=== PATIENT | female | born 1950 | race Caucasian/White ===

== ENCOUNTER 2016-07-29 08:15 | Day surgery (SDC) | payer BC, OTHER ==
[~2016-07-29 08:15] MED LIST: CEFAZOLIN 1 GM/D5W RTU 1 GM/50 ML RTUPB IV PRN; RINGERS SOLUTION,LACTATED 1,000 ML IV PRN
[2016-07-29] MEDS ORDERED: FENTANYL CITRATE INJ/PF 100 MCG/2 ML AMPUL ONE (10:00)
[2016-07-29] MEDS ORDERED: MIDAZOLAM 2 MG/2 ML INJ ONE (10:00)
[2016-07-29] MEDS ORDERED: ONDANSETRON HCL INJ/PF 4 MG/2 ML SDV ONE (10:00)
[2016-07-29] MEDS ORDERED: PROPOFOL INJ 200 MG/20 ML VIAL IV ONE (10:01)
[2016-07-29] MEDS ORDERED: DEXAMETHASONE SOD PHOS INJ 10 MG/1 ML VIAL ONE (10:01)
[2016-07-29] MEDS ORDERED: KETOROLAC TROMETHAMINE 60 MG/2 ML SDV ONE (10:01)
[2016-07-29] MEDS ORDERED: BUPIVACAINE HCL 0.5 % INJ/PF 30 ML SDV ONE (10:02)
[2016-07-29] MEDS ORDERED: LIDOCAINE 2% INJ (20 MG/ML) 20 ML MDV ONE (10:02)
--- NOTE | 2016-07-29 11:33 | [facility]ARE OPERATIVE REPORT E ---
[facility] NAME: ALLISON LANGFORD AGE: 66Y DATE OF SURGERY: 07/29/2016 ROOM: PREOPERATIVE DIAGNOSIS: FOREIGN BODY, PLANTAR ASPECT LEFT HALLUX. POSTOPERATIVE DIAGNOSIS: FOREIGN BODY, PLANTAR ASPECT LEFT HALLUX. OPERATION: Removal of foreign body, plantar aspect left hallux. SURGEON: TAMMY DOWD D.P.M. INTRAOPERATIVE FINDINGS: Intraoperative findings indicated a well encapsulated piece of foreign material which was with a consistency of glass or piece of thin porcelain. Intraoperative findings were confirmed clinically. PROCEDURE: With the patient lying in the dorsal recumbent position, the left foot and leg were prepped and draped in the usual standard sterile orthopedic manner after the local anesthesia was administered which was a regional infiltration with local anesthesia. The type of anesthesia utilized was a 50/50 mixture of 2% Xylocaine and 0.5% Marcaine. After the anesthetic effect was accomplished, attention was directed to the plantar aspect of the left hallux. A curvilinear incision was placed right over the apical portion of the palpable painful area. The initial incision was deepened. The superficial and deep subcutaneous tissues were dissected via blunt and sharp dissection. All bleeders were ligated. All vital structures were identified and protected from surgical trauma. At this point, the very localized exploration began and it was carried until a small piece of foreign material was encountered. The dimensions were about 0.5 cm in length and about 0.2 cm in width. Further exploration was carried out in order to make sure there were no additional pieces of foreign material and none were encountered. At this point, the surgical area was irrigated with copious amounts of sterile saline solution and subcutaneous tissues were closed with 3-0 Vicryl. The skin edges were repositioned and closed with 4-0 nylon using continuous interlocked stitch. A Betadine compression dressing was applied around the left hallux. This patient tolerated the procedures well and left the operating room with stable vital signs and in good condition. The patient was taken to the recovery room alert, conscious and oriented. There are no permanent disabilities anticipated at this time. ADDENDUM TO THIS DISCUSSION: Prior to placing the incision, the left leg was elevated for approximately 2 minutes' of time and the left ankle pneumatic tourniquet was inflated up to 250 mmHg after the blood was exsanguinated from the left foot. The left ankle pneumatic tourniquet was deflated after the removal of the foreign body was completed. DICTATING PHYSICIAN: TAMMY DOWD D.P.M. [id number] PHY#: [id number] ID: [id number] JOB#: [id number] ACCT: [id number] cc:TAMMY DOWD D.P.M. >
== END 2016-07-29 12:00 | disposition home or self-care (01) ==
LOC: SC 08:15
PROVIDERS: ATTEND Podiatrist Foot & Ankle Surgery
PROC: 0JCR0ZZ Extirpation of Matter from Left Foot Subcutaneous Tissue and Fascia, Open Approach (ICD-10-PCS; principal; 2016-07-29 09:15)
DX: S90.452A Superficial foreign body, left great toe, initial encounter (principal); X58.XXXA Exposure to other specified factors, initial encounter; K21.9 Gastro-esophageal reflux disease without esophagitis; Z79.899 Other long term (current) drug therapy
CPT/HCPCS: 88304 ×2; 28190; J2250; J3490; J0690; J1885; J3010; J2405; J2704; J1100; 400

== ENCOUNTER → 2016-08-23 | Outpatient (CLI) | payer BC, OTHER | LOC: OD 15:30 | DX: Z12.72 Encounter for screening for malignant neoplasm of vagina (principal); Z90.710 Acquired absence of both cervix and uterus | CPT/HCPCS: 88142 ==

== ENCOUNTER → 2018-08-02 | Outpatient (CLI) | payer BC, OTHER ==
[2018-08-02 09:51] LABS: ABSOLUTE BASOPHILS # (AUTO) 0.1 10^3/uL (0.0-0.2); ABSOLUTE EOSINOPHILS # (AUTO) 0.2 10^3/uL (0.0-0.6); ABSOLUTE LYMPHOCYTES (AUTO) 1.9 10^3/uL (0.5-4.7); ABSOLUTE MONOCYTES (AUTO) 0.4 10^3/uL (0.1-1.4); ABSOLUTE NEUT (AUTO) 2.6 10^3/uL (1.7-8.2); BASOPHILS % (AUTO) 1.3 % (0-2); EOSINOPHILS % (AUTO) 3.9 % (0-6); HEMATOCRIT 38.9 % (36.0-47.0); HEMOGLOBIN 13.2 g/dL (12.0-15.5); MEAN CORPUSCULAR HEMOGLOBIN 31.1 pg (27.0-33.4); MEAN CORPUSCULAR HGB CONC 33.9 g/dL (32.0-36.0); MEAN CORPUSCULAR VOLUME 92 fl (80-97); PLATELET COUNT 248 10^3/uL (150-450); RED BLOOD COUNT 4.25 10^6/uL (3.72-5.28); RED CELL DISTRIBUTION WIDTH 13.7 % (11.5-14.0); SEGMENTED NEUTROPHILS % (AUTO) 50.8 % (42-78); TOTAL CELLS COUNTED % (AUTO) 100 %; WHITE BLOOD COUNT 5.1 10^3/uL (4.0-10.5)
[2018-08-02 11:02] LABS: ALANINE AMINOTRANSFERASE 37 U/L (9-52); ALBUMIN 4.2 g/dL (3.5-5.0); ALKALINE PHOSPHATASE 76 U/L (38-126); ANION GAP 6 (5-19); ASPARTATE AMINO TRANSFERASE 48 U/L (14-36); BILIRUBIN,DIRECT 0.3 mg/dL (0.0-0.4); BILIRUBIN,TOTAL 0.8 mg/dL (0.2-1.3); BLOOD UREA NITROGEN 13 mg/dL (7-20); CALCIUM 10.2 mg/dL (8.4-10.2); CARBON DIOXIDE 28 mmol/L (22-30); CHLORIDE 106 mmol/L (98-107); CHOLESTEROL 203.82 mg/dL (0-200); GLUCOSE 101 mg/dL (75-110); POTASSIUM 4.6 mmol/L (3.6-5.0); SODIUM 139.8 mmol/L (137-145); TOTAL PROTEIN 7.2 g/dL (6.3-8.2); TRIGLYCERIDES 77 mg/dL (<150)
[2018-08-02 11:03] LABS: FREE T3 3.08 pg/mL (2.77-5.27); FREE T4 (FREE THYROXINE) 0.74 ng/dL (0.78-2.19)
[2018-08-02 11:16] LABS: DIRECT LDL 94 mg/dL (<100)
[2018-08-02 11:17] LABS: THYROID STIMULATING HORMONE 4.12 uIU/mL (0.47-4.68)
[2018-08-03 08:40] LABS: HEPATITIS C VIRUS AB <0.1 s/co ratio (0.0-0.9)
== END ==
LOC: OD 09:10
PROVIDERS: ATTEND Obstetrics & Gynecology Gynecology
DX: E55.9 Vitamin D deficiency, unspecified (principal); Z11.59 Encounter for screening for other viral diseases; E66.9 Obesity, unspecified; Z13.1 Encounter for screening for diabetes mellitus; Z13.220 Encounter for screening for lipoid disorders; Z13.29 Encounter for screening for other suspected endocrine disorder
CPT/HCPCS: 36415; 80053; 80061; 82306; 83036; 84439; 84443; 84481; 85025; 86376; 86803; 86804

== ENCOUNTER → 2020-05-21 | Outpatient (CLI) | payer BC, OTHER ==
[~2020-05-21] MED LIST changes: -CEFAZOLIN 1 GM/D5W RTU 1 GM/50 ML RTUPB IV PRN; +COVID-19 VACCINE (PFIZER)/PF 30 MCG/0.3 ML VIAL IM ONE; +EPINEPHRINE INJ/PF 1 MG/1 ML AMPULE IM PRN; -RINGERS SOLUTION,LACTATED 1,000 ML IV PRN
== END ==
LOC: EMPHEALTH 13:00
PROVIDERS: ATTEND Internal Medicine
DX: Z23 Encounter for immunization (principal)
CPT/HCPCS: 91300